=== PATIENT | female | born 2005 ===

== ENCOUNTER 2025-08-26 12:25 | Outpatient (REF) | payer OTHER, SELFPAY ==
[2025-08-26 18:12] LABS: Resp Syncy Virus RNA Qual PCR NEGATIVE (Negative); SARS COV2 PCR INHOUSE NEGATIVE (Negative)
--- OUTSIDE RECORDS SUMMARY | 2025-08-26 19:43 | XMS_ITS | Clinical Summary ---
Author Organization [facility] ity Address [address] [place] [address] Care Team Providers Care Municipal Bond Trader Name Role Phone Unavailable Primary Care Provider Unavailabl e Social History Tobacco Use Types Packs/Day Years Used Date Smoking Tobacco: Never Assessed Comments Unknown Sex and Gender Information Value Date Recorded Sex Assigned at Not on file Legal Sex Female 8:21 PM EST Gender Identity Not on file Sexual Orientation Not on file Plan of Treatment Health Maintenance Due Date Last Done Comments Gonorrhea/Chlamydia Screening 2003 HPV Vaccines (1 - 3-dose series) 12/10/2018 Meningococcal B Vaccine (1 o f 2 - Standard) 2019 DTaP,Tdap,and Td Vaccines (1 - Tdap) 12/10/2022 Hepatitis B Vaccines (1 of 3 - 19+ 3-dose series) 12/10/2022 Depression Screening 09/17/2024 Cervical Cancer Screening: P ap Smear 12/10/2024 COVID-19 Vaccine (1 - 2024-2 6 season) 2025 Influenza Vaccine (#1) 2025 RSV Immunization Adult Patie nts (1 - 1-dose 75+ series) 12/10/2078 HIB Vaccines Aged Out No longer eligi ble based on patient's age to complete this topic Hepatitis A Vaccines Aged Out No long er eligible based on patient's age to complete this topic IPV Vaccines Aged Out No longer eligi ble based on patient's age to complete this topic MMR Vaccines Aged Out No longer eligi ble based on patient's age to complete this topic Meningococcal ACWY Vaccine Aged Out N o longer eligible based on patient's age to complete this topic Pneumococcal Vaccine: Pediat rics (0 to 5 Years) and At-Risk Patients (6 to 49 Years) Aged Out No longer eligible b ased on patient's age to complete this topic RSV Immunization Patients Un rubio 20 months Aged Out No longer eligible b ased on patient's age to complete this topic Varicella Vaccines Aged Out No longer eligible based on patient's age to complete this topic
--- OUTSIDE RECORDS SUMMARY | 2025-08-26 19:43 | XMS_ITS | Clinical Summary ---
Author Organization [facility] Prior to 02/14/[address] [place] [id number] Care Team Providers Care Medical Director Name Role Phone Unavailable Primary Care Provider Unavailabl e Medications No known medications Social History Tobacco Use Types Packs/Day Years Used Date Smoking Tobacco: Never Assessed Sex and Gender Information Value Date Recorded Sex Assigned at Female 07/06/2022 11:46 PM EDT Gender Identity Not on file Sexual Orientation Not on file Job Start Date Occupation Industry Not on file Not on file Not on file Plan of Treatment Not on file
== END 2025-08-26 12:26 | disposition home or self-care (01) ==
LOC: HO.LNP 12:25
PROVIDERS: Physician Assistant Medical
DX: Z03.818 Encounter for observation for suspected exposure to other biological agents ruled out (principal); J01.00 Acute maxillary sinusitis, unspecified; R09.89 Other specified symptoms and signs involving the circulatory and respiratory systems
CPT/HCPCS: 87637

== ENCOUNTER 2025-08-26 12:25 | Outpatient (AMB) | payer OTHER, SELFPAY ==
--- NOTE | 2025-08-26 12:44 | AM.OFFWIN_ITS ---
Intake Vital Signs 08/26/25 12:45 Height 5 ft Weight 131 lb BMI 25.6 BP 116/84 Blood Pressure Location Lt brachial Position Sitting Pulse 85 Pulse Source Pulse Oximeter Temp 98.0 F Temp Source Oral Pulse Oximetry (%) 96 Oxygen Delivery Method Room Air Intake Visit Reasons: [employer]OPER [employer] Possible sinus infection Intake Note: pt presents with sinus congestion, sinus pain, headaches for 3 days. works as an elementary school nurse Allergies No Known Allergies Allergy (Verified 08/26/25 12:46) Do you need a note to return to daycare/school/sports/work: Yes HPI HPI Comments History of Present Illness Details History of Present Illness - The patient is a 19 year old female pr esenting with symptoms of acute sinus pain and pressure. - Her symptoms, including congestion, be zena on Sunday, and she reports feeling very unwell by Sunday evening. - She endorses facial pain and pressure, tooth pain, and a headache. - The patient denies having a cough, wendy st pain, or shortness of breath. - She has not had a fever. - She has a history of similar episodes, but the last occurrence was over a year ago. - For her current symptoms, she has been taking xugg-xeh-zpeigvj decongestants. - She has no known allergies to medicati ons. - She denies CP, SOB, abd pain, sore thr oat, or cough. Physical Exam General: Cooperative, healthy appearing, comfortable, no acute distress and well developed Head: Normal to inspection Ears: Hearing grossly normal bilaterally. No tragus or mastoid tenderness noted. Auditory canals clear bilaterally. TM's normal, not bulging. No fluid noted. Nose: Normal external nose present. Moist mucosa. Turbinates normal bilaterally, not boggy. Face and sinus: Tenderness to palpation of the frontal and maxillary sinuses bilaterally. Neck: Normal visual inspection and Yes full ROM. No lymphadenopathy noted. Respiratory: Normal respiratory effort and able to speak in complete sentences. Clear to auscultation bilaterally Cardiovascular: Regular rate and rhythm. Normal S1 and S2 Skin: No rashes or lesions noted Review of Systems Const All systems reviewed & are unremarkable except as noted in HPI and below Physical Exam Vital Signs: Last Vital Signs Temp 98.0 F 08/26/25 12:45 Pulse 85 08/26/25 12:45 BP 116/84 08/26/25 12:45 Pulse Ox 96 08/26/25 12:45 Oxygen Delivery Method Room Air 08/26/25 12:45 BMI result Body Mass Index 25.6 Assessment & Plan Assessment & Plan (1) Sinusitis: Code(s): J32.9 - Chronic sinusitis, unspecified Qualifiers: Sinusitis location: maxillary Chronicity: acute Recurrence: non- recurrent Qualified Code(s): J01.00 - Acute maxillary sinusitis, unspecified Plan Most likely sinusitis vs URI vs viral illness plan - will order covid/flu/RSV - steam showers - tylenol or motrin as needed for pain or fever - Augmentin BID for 7 days - flonase daily - zyrtec daily - follow up with PCP Orders: Orders SARS-CoV2/FLU/RSV Today R09.89 - Other specified symptoms and signs involving the circulatory and respiratory systems Medications: New amoxicillin-pot clavulanate 875-125 mg 1 tab PO Q12H 14 tabs 0RF cetirizine-pseudoephedrine 5-120 mg ER 1 tab PO BID 14 tabs 0RF 7 days fluticasone propionate 50 mcg/actuation administer into each nostril 1 spray intranasal Q12H 16 grams 0RF Coding Level of Care Code Est Pt Level 3 (74190) Diagnoses Acute non-recurrent maxillary sinusitis J01.00 Sinusitis location: maxillary Chronicity: acute Recurrence: non-recurrent
[2025-08-26 12:45] VITALS: BP 116/84; PULSE 85; TEMP 36.7; O2SAT 96; BMI 25.6
== END 2025-08-26 13:36 | disposition home or self-care (01) ==
PROVIDERS: Visit Provider Physician Assistant Medical
DX: J01.00 Acute maxillary sinusitis, unspecified (principal)